=== PATIENT | female | born 1945 | race Caucasian/White ===

== ENCOUNTER 2020-07-16 06:29 | Day surgery (SDC) | payer MEDICARE, BC ==
[~2020-07-16] VITALS: Ht 172.7 cm; Wt 75.0 kg
[~2020-07-16 06:29] MED LIST: IBUPROFEN100 MG/5 M PO; NORVASC5 MG PO; VERAPAMIL HCL40 MG PO
--- NOTE | 2020-07-16 07:16 | NUR ---
PATIENT PUSHES HER CALL LIGHT AND ASKS FOR AN ADDITIONAL WARM BLANKET. THIS IS GIVEN.
--- NOTE | 2020-07-16 09:50 | NUR ---
07/16/20 0950 Leanne Barnes 7819-PATIENT ARRIVED TO PACU ON 3L NC PLACED ON 2L REACTIVE TO VERBAL STIMULI OPENING EYES, DROWSY. DENIES PAIN OR NAUSEA. RR EVEN. BP ELEVATED PATIENT REPORTS "DID NOT TAKE MEDICATION THIS MORNING"
--- NOTE | 2020-07-16 11:44 | OR ---
[facility] [address], [place] [address] Signed DATE OF OPERATION: 07/16/2020 SURGEON: Evelin Trotter MD PREOPERATIVE DIAGNOSES: 1. Intermittent epigastric abdominal pain. 2. Negative colonoscopy in 2005. 3. Negative guaiac stool in 2017. 4. Screening. POSTOPERATIVE DIAGNOSES: 1. Moderate-sized type 3 hiatal hernia (37-33 cm). 2. Mild diffuse gastroduodenitis. 3. Minimal to moderate internal and external hemorrhoids. 4. Minimal sigmoid diverticulosis. 5. 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 6. Long redundant colon. 7. 4-7 mm polyps x3, ileocecal valve. 8. 4 mm polyp at 115 cm. 9. 4 mm polyp at 110 cm (snare). 10. 4 mm polyp at 100 cm. PROCEDURES: 1. EGD with CLOtest and biopsies of the pyloric bulb, antrum and distal esophagus. 2. Colonoscopy, snare polypectomy and hot biopsy. ESTIMATED BLOOD LOSS: None. INDICATIONS: Mervat is a 74-year-old female, asked to see me for both upper and lower endoscopy. Mainly, she has been having intermittent epigastric abdominal pain over the last 3-4 years. She is not sure if it was associated with the stress of taking care of her elderly mother. Her mother had finally passed at age 93. In addition, she is known to have a negative colonoscopy back in 2004 while living in [place]. In 2017, she had guaiac positive stool. She presents mainly then for screening colonoscopy. There is no family history of colon cancer or polyps. In the office, I gave Mervat a pamphlet on both upper and lower endoscopy. We have reviewed the nature of the two tests along with the risks including, but not limited to gas, bloating, crampy abdominal pain, bleeding, perforation requiring surgery, and missed diagnosis. We also discussed the need for the Electronically Signed By: EVELIN TROTTER MD 07/16/20 1144 PATIENT NAME: MERVAT OSMAN OPERATIVE REPORT DATE OF : 49 REPORT #: [id number] PHYSICIAN: EVELIN TROTTER MD PCP: KOKI KLINE DO REPORT IS CONFIDENTIAL AND NOT TO BE RELEASED WITHOUT AUTHORIZATION [facility] [address], [place] [address] Signed IV conscious sedation. She had expressed understanding and wished to proceed. DESCRIPTION OF PROCEDURE: Mervat was taken into our endoscopy suite and placed in the supine semi-recumbent position. The posterior oropharynx was anesthetized with lidocaine spray. A bite block was utilized for the case. A total of 11 mg of Versed and 200 mcg of fentanyl were utilized for the test. We had some issues with our computer in between the upper and lower endoscopy. That took a few minutes and probably required some extra sedation in that regard. However, Mervat does have a very long redundant colon. The adult gastroscope had been introduced and advanced out into a hiatal hernia. It took just a minute to get through the hiatal hernia, into the stomach and in and out of the duodenum itself. The duodenum was unremarkable. The pyloric channel showed some mild patchy erythematous changes. No ulcerations in the pyloric bulb nor the stomach. We took a biopsy out of the pyloric bulb for pathologic review. The stomach showed mild diffuse superficial erythematous changes. We took a biopsy of the antrum for CLOtest as well as a biopsy for H. pylori. Upon retroflexion of scope, we then got a better view of her hiatal hernia. Her lower esophageal sphincter is above the crura. She appears to have a combined type 3 hiatal hernia. We measured from the crura up to the Z-line and it was 37 back to 33 cm. The lower esophageal sphincter appears to be competent at this time. No ulcerations around the hiatal hernia. The scope was withdrawn up through the area of the GE junction, which was compliant without stricture. There was no gastric or esophageal varices. Minimal disruption to the Z-line. There was no Farnsworth's mucosa. We took a biopsy from the distal esophagus slightly above the Z-line. Otherwise, the distal, middle and upper esophagus were unremarkable. The arytenoids and vocal cords were unremarkable. The gastroscope had been removed and the gas suctioned out. Mervat tolerated her upper endoscopy quite well. Mervat was then rotated into the left lateral decubitus position. She was maintained on IV sedation with Versed and fentanyl. A digital rectal exam was performed and she does have minimal to moderate external hemorrhoids. The adult colonoscope was then introduced and advanced under direct visualization of the camera. We encountered the classic tiger striping in the rectum throughout the entire colon consistent with melanosis coli. It is probably moderate in grade. We had slowly advanced the scope with some additional sedation and abdominal compression. She has a very long redundant sigmoid and left colon. We eventually made our way into the cecum itself. We could easily see the appendiceal orifice and the ileocecal valve. We took out the above polyps with the help of the hot biopsy forceps. We did use our snare back at 110 cm. That polyp was suctioned through the scope and captured in our canister. There were three polyps on the ileocecal valve, two were classic polyps and the other probably is a small edge of the ileocecal valve that may very well just be benign protrusion. We also saw diverticula in the left sigmoid colon. They were minimal to moderate in number, minimal to moderate in size and scattered about. Once down in the rectum, the scope was Electronically Signed By: EVELIN TROTTER MD 07/16/20 1144 PATIENT NAME: MERVAT OSMAN OPERATIVE REPORT DATE OF : 49 REPORT #: [id number] PHYSICIAN: EVELIN TROTTER MD PCP: KOKI KLINE DO REPORT IS CONFIDENTIAL AND NOT TO BE RELEASED WITHOUT AUTHORIZATION [facility] [address] [place] [address] Signed retroflexed and she does have minimal to moderate internal hemorrhoids as well. After this, the gas was suctioned out and the colonoscope removed. Mervat tolerated her lower endoscopy well. RECOMMENDATIONS: I will see Mervat back in my office in 7 to 14 days to review her results. She might consider coming back with additional bowel prep in a shorter interval to reassess the colon particularly around the ileocecal valve and we will have to talk about the melanosis coli. Evelin Trotter MD ALB/MODL /[id number] cc: DO Evelin Gregorio MD Copies: KOKI KLINE ANDREW L MD ~ Electronically Signed By: EVELIN TROTTER MD 07/16/20 1144 PATIENT NAME: MERVAT OSMAN OPERATIVE REPORT DATE OF : 49 REPORT #: [id number] PHYSICIAN: EVELIN TROTTER MD PCP: KOKI KLINE DO REPORT IS CONFIDENTIAL AND NOT TO BE RELEASED WITHOUT AUTHORIZATION
--- NOTE | 2020-07-16 12:34 | NUR ---
PT ALERT, ORIENTED AND SITING UP IN BED ON HER PHONE. HERE FOR FIRST EGD, HAS HAD PREVIOUS SCOPE. PT DID NOT CARE MUCH FOR PREP, MENTIONED THAT IT WAS HARD TO GET ALL OF THE GATORADE DOWN. ALL QUESTIONS ASKED, ANSWERED, PT REQUESTED PRAYER. WILL FOLLOW NEEDED
--- NOTE | 2020-07-18 16:37 | PATH ---
[facility] [address] [place], [place] [address] Signed SPECIMEN(S): A DUODENUM BULB SPECIMEN(S): B ANTRUM/PYLORUS SPECIMEN(S): C DISTAL ESOPHAGUS SPECIMEN(S): D COLON POLYP SPECIMEN(S): E COLON POLYP SPECIMEN(S): F ILEOCECAL VALVE POLYP SPECIMEN(S): G MELANOSIS COLI SPECIMEN(S): H COLON POLYP AT 115 CM SPECIMEN SOURCE: A. DUODENUM BULB B. ANTRUM/PYLORUS C. DISTAL ESOPHAGUS D. COLON POLYP E. COLON POLYP F. ILEOCECAL VALVE POLYP G. MELANOSIS COLI H. COLON POLYP AT 115 CM CLINICAL HISTORY: Epigastric pain. Postop: Hiatal hernia, gastroduodenitis, diverticulitis, melanosis coli, internal and external hemorrhoids. MICROSCOPIC DESCRIPTION: Histologic sections of all submitted blocks are examined by light microscopy. These findings, together with the gross examination, support the pathologic diagnosis. FINAL PATHOLOGIC DIAGNOSIS: A. Duodenum, bulb, biopsy: - Duodenal mucosa with changes consistent with peptic duodenitis. - Negative for increased intraepithelial lymphocytes. - Negative for dysplasia or malignancy. B. Stomach, antrum/pylorus, biopsy: - Antral mucosa with no histopathologic abnormality. - Negative for Helicobacter organisms on HE stain. - Negative for dysplasia or malignancy. C. Esophagus, distal, biopsy: - Squamous mucosa with minimal chronic inflammation. - Negative for intestinal metaplasia, dysplasia, or malignancy. D. Colon, polyp, polypectomy: - Fragments of tubular adenoma. PATIENT NAME: DIONE OSMAN PATHOLOGY DATE OF : 49 REPORT #: [id number] PHYSICIAN: ADILIA BEARD PCP: KOKI KLINE DO REPORT IS CONFIDENTIAL AND NOT TO BE RELEASED WITHOUT AUTHORIZATION [facility] [address] [place], [place] [address] Signed - Negative for high-grade dysplasia or malignancy. E. Colon, polyp, polypectomy: - Tubular adenoma. - Negative for high-grade dysplasia or malignancy. F. Ileocecal valve, polyp, polypectomy: - Fragments of tubular adenoma. - Melanosis coli. - Negative for high-grade dysplasia or malignancy. G. Colon, designated "melanosis coli", biopsy: - Melanosis coli. - Negative for active, chronic, or microscopic colitis. - Negative for dysplasia or malignancy. H. Colon, polyp at 115 cm, polypectomy: - Tubular adenoma; negative for high-grade dysplasia. - Melanosis coli. - Negative for malignancy. NAL:cml:C2NR GROSS DESCRIPTION: Eight specimens are received in eight containers, labeled "DY." A. The specimen, labeled "DY, #1," and designated on the requisition "duodenum bulb biopsy," is received in formalin and consists of one elongated shaffer soft tissue fragment that measures 0.5 cm in greatest dimension. The specimen is entirely submitted in cassette (A1). B. The specimen, labeled "DY, #2," and designated on the requisition "antrum biopsy," is received in formalin and consists of one shaffer soft tissue fragment that measures 0.3 cm in greatest dimension. The specimen is entirely submitted in cassette (B1). C. The specimen, labeled "DY, #3," and designated on the requisition "distal esophagus biopsy," is received in formalin and consists of one elongated shaffer soft tissue fragment that measures 0.5 cm in greatest dimension. The specimen is entirely submitted in cassette (C1). D. The specimen, labeled "DY, #4," and designated on the requisition "colon polypectomy," is received in formalin and consists of two shaffer soft tissue fragments that measure 0.4 up to 0.5 cm in greatest dimension. The specimen is entirely submitted in cassette (D1). E. The specimen, labeled "DY, #5," and designated on the requisition "colon polypectomy," is received in formalin and consists of one shaffer soft tissue fragment that measures 0.5 cm in greatest dimension. The specimen is entirely submitted in cassette (E1). PATIENT NAME: DIONE OSMAN PATHOLOGY DATE OF : 49 REPORT #: [id number] PHYSICIAN: ADILIA BEARD PCP: KOKI KLINE DO REPORT IS CONFIDENTIAL AND NOT TO BE RELEASED WITHOUT AUTHORIZATION [address] [address] Signed F. The specimen, labeled "DY, #6," and designated on the requisition "ileocecal valve polypectomy," is received in formalin and consists of multiple shaffer soft tissue fragments that measure less than 0.1 to 0.5 cm in greatest dimension. The specimen is entirely submitted in cassette (F1). G. The specimen, labeled "DY, #7," and designated on the requisition "melanosis coli biopsy," is received in formalin and consists of two shaffer soft tissue fragments that measure 0.2 to 0.3 cm in greatest dimension. The specimen is entirely submitted in cassette (G1). H. The specimen, labeled "DY #8," and designated on the requisition "colon polypectomy 115 cm," is received in formalin and consists of two shaffer soft tissue fragments that measure 0.3 and 0.4 cm in greatest dimension. The specimen is entirely submitted in cassette (H1). AI (under the direct supervision of a pathologist) The Gross Description was prepared using a voice recognition system. The report was reviewed for accuracy; however, sound-alike word errors, addition and/or deletions may occur. If there is any question about this report, please contact Client Services. PERFORMING LABORATORY: The technical component was [place] [address] (Wound Nurse: Radha Castillo MD; CLIA# [id number]). Professional interpretation was performed by [place] [address] (CLIA# [id number]). Diagnostician: Mimi Espinal MD Pathologist Electronically Signed 07/18/2020 Copies: ~ PATIENT NAME: DIONE OSMAN PATHOLOGY DATE OF : 49 REPORT #: [id number] PHYSICIAN: ADILIA BEARD PCP: KOKI KLINE DO REPORT IS CONFIDENTIAL AND NOT TO BE RELEASED WITHOUT AUTHORIZATION
== END 2020-07-16 10:55 | disposition home or self-care (01) ==
LOC: DS 06:29 → OPS 06:29 → DS 09:00 → OPS 09:00
PROVIDERS: ATTEND Colon & Rectal Surgery
PROC: 0DBC8ZZ Excision of Ileocecal Valve, Via Natural or Artificial Opening Endoscopic (ICD-10-PCS; 2020-07-16)
PROC: 0DB38ZZ Excision of Lower Esophagus, Via Natural or Artificial Opening Endoscopic (ICD-10-PCS; principal; 2020-07-16 06:45)
PROC: 0DB78ZZ Excision of Stomach, Pylorus, Via Natural or Artificial Opening Endoscopic (ICD-10-PCS; 2020-07-16 06:45)
DX: Z12.11 Encounter for screening for malignant neoplasm of colon (principal); I10 Essential (primary) hypertension; E78.5 Hyperlipidemia, unspecified; E55.9 Vitamin D deficiency, unspecified; K44.9 Diaphragmatic hernia without obstruction or gangrene; K29.90 Gastroduodenitis, unspecified, without bleeding; K64.4 Residual hemorrhoidal skin tags; K64.8 Other hemorrhoids; K57.32 Diverticulitis of large intestine without perforation or abscess without bleeding; K76.89 Other specified diseases of liver; K63.5 Polyp of colon
CPT/HCPCS: 86677; 88305; 99153; G0500; J0690; J2250; J3010; J7121

== ENCOUNTER 2020-10-10 06:20 | Day surgery (SDC) | payer MEDICARE, BC ==
[~2020-10-10] VITALS: Ht 172.7 cm; Wt 75.0 kg
[~2020-10-10 06:20] MED LIST changes: +B-121000 MC2 PO; +MULTI-VITAMIN1 EACH PO; +PLEXUS
--- NOTE | 2020-10-10 08:23 | NUR ---
10/10/20 0823 Briana Trotter 0819- PT ARRIVES TO PACU AROUSABLE TO NOXIOUS STIMULI. PT REPORTS NO PAIN OR NAUSEA AND FALLS BACK TO SLEEP. RESP EVEN AND UNLABORED. OXYGEN SAT HIGH 90'S TO 100% ON 2L VIA NC.
--- NOTE | 2020-10-10 10:06 | NUR ---
PT TAKEN FOR SCOPE. CONNECTED WITH PTS' NEEDING DIRECTIONS IN BLDG. ALSO INFORMED OF HOSP VISITING POLICY. WILL FOLLOW NEEDED
--- NOTE | 2020-10-11 08:58 | OR ---
[facility] [address] [place], [place] [address] Signed DATE OF OPERATION: 10/10/2020 SURGEON: Evelin Trotter MD PREOPERATIVE DIAGNOSES: 1. Personal history of colonic polyps. 2. Melanosis coli. 3. Moderate internal and external hemorrhoids. 4. Minimal to moderate sigmoid diverticulosis. POSTOPERATIVE DIAGNOSES: 1. A 5 mm evans appendiceal orifice polyp. 2. Biopsy ileocecal valve (clip). 3. 4 mm polyp, splenic flexure. 4. Moderate internal and external hemorrhoids. 5. Minimal to moderate left and sigmoid colon diverticulosis. 6. Long redundant sigmoid and left colon. PROCEDURE: Colonoscopy with hot biopsy and application of clip. ESTIMATED BLOOD LOSS: None. INDICATIONS: Mervat is a 74-year-old female, who had a negative colonoscopy while living in [place] back in 2004. She had a negative guaiac test around 2017. She came to us on July 16, 2020 for upper and lower endoscopy. We found she does have minimal to moderate sigmoid diverticulosis. She had minimal to moderate internal and external hemorrhoids. She also has melanosis coli. We also took out several polyps at that time. Some were on the ileocecal valve, the others were at 115 cm, 110 cm and 100 cm. We felt it was appropriate to come back and reassess for more polyps particular on the ileocecal valve itself. In the office, I had reviewed this with her in detail. She did moderately well with IV sedation using Versed and fentanyl for the upper and lower endoscopy. Consequently, we rescheduled her that way. However, today because of her long redundant colon she was moaning and awake during much of that procedure. I think for her and from the technical aspect of the endoscopy she will be much better off with monitored anesthesia care on propofol and therefore a much better result for colonoscopy in the future. She understands there is risk including, but not limited to gas bloating, crampy abdominal pain, bleeding, perforation requiring surgery, and missed diagnosis. Electronically Signed By: EVELIN TROTTER MD 10/11/20 0858 PATIENT NAME: MERVAT OSMAN OPERATIVE REPORT DATE OF : 49 REPORT #: [id number] PHYSICIAN: EVELIN TROTTER MD PCP: LORNE KLINE DO REPORT IS CONFIDENTIAL AND NOT TO BE RELEASED WITHOUT AUTHORIZATION [facility] [address], [place] [address] Signed She had expressed understanding and wished to proceed. PROCEDURE NOTE: Mervat was taken into our endoscopy suite and placed in the left lateral decubitus position. She was given a total of 12 mg of Versed and 200 mcg of fentanyl to cover the case. Even then she was moaning and awake and reaching through much of the procedure. She has a very long, somewhat narrow sigmoid and left colon. It is quite difficult to pass the scope. In fact, we broke the cable on the large wheel on our first scope. It had to be withdrawn and a new scope utilized. It is quite clear that she would benefit from monitored anesthesia care with propofol in the future. We eventually with significant difficulty made our way around the colon with some abdominal compression and finally having gone in and out three times, we made it around hepatic flexure and down into the cecum itself. We removed the periappendiceal polyp with the help of hot biopsy forceps. We could see one area on the ileocecal valve was a little prominent, so we went ahead and biopsied that, it bled just a bit so we applied some cautery and then a clip. We could see a polypectomy site at the base of the ileocecal valve. We continued to withdrawal the scope and we saw several of the old polypectomy sites. We took another polyp out actually in the splenic flexure rather than the hepatic flexure as originally thought. Again, her anatomy is somewhat difficult because it is so long and difficult. Once again, she has less left colon and sigmoid colon diverticulosis. They are moderate size, minimal to moderate in number, and scattered about. The rectum itself was unremarkable. Upon retroflexion of scope, we could see the moderate internal hemorrhoids. Of course, on digital rectal exam, she has two moderately large external hemorrhoids as well. After this, the gas was suctioned out, colonoscope removed. Overall, Mervat tolerated the procedure well. RECOMMENDATIONS: I will see Mervat back in my office in 7 to 14 days to review her results. She might consider a three year followup colonoscopy. She should strongly consider monitored anesthesia care with propofol in the future as dictated above. MD ANTHONY Forman/JIHANL /[id number] Electronically Signed By: EVELIN TROTTER MD 10/11/20 0858 PATIENT NAME: MERVAT OSMAN OPERATIVE REPORT DATE OF : 49 REPORT #: [id number] PHYSICIAN: EVELIN TROTTER MD PCP: LORNE KLINE DO REPORT IS CONFIDENTIAL AND NOT TO BE RELEASED WITHOUT AUTHORIZATION [facility] [address], [place] [address] Signed cc: MD Lorne Forman DO Copies: EVELIN TROTTER MD, ARIAN DO ~ Electronically Signed By: EVELIN TROTTER MD 10/11/20 0858 PATIENT NAME: MERVAT OSMAN OPERATIVE REPORT DATE OF : 49 REPORT #: [id number] PHYSICIAN: EVELIN TROTTER MD PCP: LORNE KLINE DO REPORT IS CONFIDENTIAL AND NOT TO BE RELEASED WITHOUT AUTHORIZATION
--- NOTE | 2020-10-11 14:32 | PATH ---
[facility] [address] [place], [place] [address] Signed SPECIMEN(S): A HEPATIC FLEXURE POLYP SPECIMEN(S): B CECUM POLYP SPECIMEN(S): C ILEOCECAL VALVE SPECIMEN SOURCE: A. HEPATIC FLEXURE POLYP B. CECUM POLYP C. ILEOCECAL VALVE CLINICAL HISTORY: Colonoscopy. History of polyps, melanosis coli. Dx: Polyp. MICROSCOPIC DESCRIPTION: Histologic sections of all submitted blocks are examined by light microscopy. These findings, together with the gross examination, support the pathologic diagnosis. FINAL PATHOLOGIC DIAGNOSIS: A. Colon, hepatic flexure polyp, polypectomy: - Fragments of cauterized colonic mucosa with melanosis coli. - Negative for malignancy. B. Colon, cecum periappendiceal polyp, polypectomy: - Fragments of tubular adenoma. - Negative for high-grade dysplasia or malignancy. C. Colon, ileocecal valve, biopsy: - Favor cauterized hyperplastic polyp. - Negative for malignancy. COMMENT: Regarding specimens A and C: Multiple additional deeper levels were examined. The degree of cautery artifact precludes complete histologic examination. NAL:cml:C2NR GROSS DESCRIPTION: Three specimens are received in three containers, labeled "DY." A. The specimen, labeled "DY, 1," and designated on the requisition "hepatic flexure polyp," is received in formalin and consists of two shaffer soft tissue polypoid fragments that measure 0.3-0.4 cm in greatest dimension. The specimen is entirely submitted in cassette (A1). B. The specimen, labeled "DY, 2," and designated on the requisition "cecum polyp, periappendiceal polyp," is received in formalin and consists of three shaffer soft tissue fragments that measure 0.3 cm PATIENT NAME: DIONE OSMAN PATHOLOGY DATE OF : 49 REPORT #: [id number] PHYSICIAN: ADILIA PATHOLOGY PCP: KOKI KLINE DO REPORT IS CONFIDENTIAL AND NOT TO BE RELEASED WITHOUT AUTHORIZATION [facility] [address] [place] [address] Signed in greatest dimension. The specimen is entirely submitted in cassette (B1). C. The specimen, labeled "DY, 3," and designated on the requisition "ileocecal valve," is received in formalin and consists of one shaffer soft tissue fragment that measures 0.4 cm in greatest dimension. The specimen is entirely submitted in cassette (C1). AT (under the direct supervision of a pathologist) The Gross Description was prepared using a voice recognition system. The report was reviewed for accuracy; however, sound-alike word errors, addition and/or deletions may occur. If there is any question about this report, please contact Client Services. PERFORMING LABORATORY: The technical component was performed by [facility], [address] [place] [id number] (Gas Welder Apprentice: Radha Castillo MD; CLIA# [id number]). Professional interpretation was performed by [facility], [address] [address] (CLIA# [id number]). Diagnostician: Mimi Espinal MD Pathologist Electronically Signed 10/11/2020 Copies: ~ PATIENT NAME: DIOEN OSMAN PATHOLOGY DATE OF : 49 REPORT #: [id number] PHYSICIAN: ADILIA BEARD PCP: KOKI KLINE DO REPORT IS CONFIDENTIAL AND NOT TO BE RELEASED WITHOUT AUTHORIZATION
== END 2020-10-10 09:35 | disposition home or self-care (01) ==
LOC: DS 06:20 → OPS 06:20 → DS 06:45 → OPS 09:35
PROVIDERS: ATTEND Colon & Rectal Surgery
PROC: 0DBL8ZX Excision of Transverse Colon, Via Natural or Artificial Opening Endoscopic, Diagnostic (ICD-10-PCS; 2020-10-10)
PROC: 0DBC8ZX Excision of Ileocecal Valve, Via Natural or Artificial Opening Endoscopic, Diagnostic (ICD-10-PCS; 2020-10-10)
PROC: 0DBH8ZX Excision of Cecum, Via Natural or Artificial Opening Endoscopic, Diagnostic (ICD-10-PCS; principal; 2020-10-10 06:45)
DX: Z12.11 Encounter for screening for malignant neoplasm of colon (principal); D12.0 Benign neoplasm of cecum; K63.5 Polyp of colon; K63.89 Other specified diseases of intestine; K57.30 Diverticulosis of large intestine without perforation or abscess without bleeding; Q43.8 Other specified congenital malformations of intestine; K64.0 First degree hemorrhoids; K64.4 Residual hemorrhoidal skin tags; I10 Essential (primary) hypertension; E78.5 Hyperlipidemia, unspecified; D64.9 Anemia, unspecified; Z86.010 Personal history of colon polyps; Z90.49 Acquired absence of other specified parts of digestive tract
CPT/HCPCS: 99153; G0500; J0690; J2250; J3010; J7121